=== PATIENT | female | born 1995 | race Caucasian/White ===

== ENCOUNTER 2019-07-09 07:54 | Outpatient (CLI) | payer OTHER, BC | END 2019-07-09 23:59 | disposition home or self-care (01) | LOC: CFH 07:54 | PROVIDERS: ATTEND Family Medicine | DX: D18.00 Hemangioma unspecified site (principal); R56.9 Unspecified convulsions; J32.0 Chronic maxillary sinusitis; J39.2 Other diseases of pharynx | CPT/HCPCS: 70553; A9585 ==